=== PATIENT | female | born 1990 | race American Indian/Alaskan Native ===

== ENCOUNTER 2021-08-07 14:54 | Emergency (ER) | payer BC ==
[2021-08-07 16:40] VITALS: BP 139/79
[2021-08-07 17:58] LABS: Basophils % (Auto) 0.2 % (0.0-1.8); Eosinophils # (Auto) 0.2 K/mm3 (0.0-0.4); Eosinophils % (Auto) 1.8 % (0.0-4.3); Hematocrit 38.2 % (30.3-42.9); Hemoglobin 13.1 gm/dl (10.1-14.3); Lymphocytes # (Auto) 1.3 K/mm3 (1.2-5.4); Lymphocytes % (Auto) 9.9 % (13.4-35.0); Mean Corpuscular HGB Conc 34 % (30-34); Mean Corpuscular Volume 97 fl (79-97); Monocytes # (Auto) 0.7 K/mm3 (0.0-0.8); Monocytes % (Auto) 5.7 % (0.0-7.3); Platelet Count 248 K/mm3 (140-440); Red Blood Count 3.93 M/mm3 (3.65-5.03); Red Cell Distribution Width 12.4 % (13.2-15.2)
[2021-08-07 18:08] LABS: Blood Urea Nitrogen 5 mg/dL (7-17); Calcium 9.5 mg/dL (8.4-10.2); Hemolysis Index 17
[2021-08-07 18:14] LABS: BUN/Creatinine Ratio 10
[2021-08-07] MEDS ORDERED: ONDANSETRON 4 MG ODT TAB PO ONE (20:49)
--- NOTE | 2021-08-07 21:34 | Emergency Department Report ---
ED Abdominal Pain HPI - General Chief Complaint: Abdominal Pain Stated Complaint: VOMITING/[id number] Time Seen by Provider: 08/07/21 20:41 Source: patient Mode of arrival: Ambulatory Limitations: No Limitations - History of Present Illness Initial Comments: Is a 30-year-old female who presents for left upper quadrant abdominal pain with nausea/ vomiting and occasional constipation for the past month. Patient states miscarriage in june of 2021, LMP 1 week ago. However patient did follow-up with [facility] for reevaluation's stated findings with no suggestion for retained products of conception. pt further endorses hx of Right fallopian tube and right ovary removal 1 year ago. There is been no fevers no chills. Patient denies history of GERD or Crohn's. Symptoms are exacerbated by p.o. intake. Symptoms are relieved by nothing tried. Last nausea and vomiting was this a.m., last p.o. intake was this AM. Patient rates pain at 3/10 states pain level is manageable for her. Patient denies other symptoms denies other history. Patient currently not taking medications. Denies smoking denies substance. She does endorse eating sushi regularly. However no history of H. pylori. MD Complaint: abdominal pain Severity scale (0 -10): 0 - Related Data Previous Rx's Medication Instructions Recorded Last Taken Type Metoclopramide [Reglan] 10 mg PO Q6H PRN #30 tablet 08/07/21 Unknown Rx diphenhydrAMINE [Benadryl CAP] 25 mg PO Q8HR PRN #30 capsule 08/07/21 Unknown Rx Allergies Allergy/AdvReac Type Severity Reaction Status Date / Time No Known Allergies Allergy Verified 08/07/21 16:41 ED Review of Systems ROS: Stated complaint: VOMITING/[id number] Other details as noted in HPI Constitutional: denies: chills, fever Eyes: denies: eye pain, eye discharge, vision change ENT: denies: ear pain, throat pain Respiratory: denies: cough, shortness of breath, wheezing Cardiovascular: denies: chest pain, palpitations Endocrine: no symptoms reported Gastrointestinal: abdominal pain, nausea, vomiting, constipation. denies: diarrhea, melena, hematochezia Genitourinary: denies: urgency, dysuria, discharge Musculoskeletal: denies: back pain, joint swelling, arthralgia Skin: denies: rash, lesions Neurological: denies: headache, weakness, paresthesias Psychiatric: denies: anxiety, depression Hematological/Lymphatic: denies: easy bleeding, easy bruising ED Past Medical Hx - Medications Home Medications: Home Medications Medication Instructions Recorded Confirmed Last Taken Type Metoclopramide [Reglan] 10 mg PO Q6H PRN #30 tablet 08/07/21 Unknown Rx diphenhydrAMINE [Benadryl CAP] 25 mg PO Q8HR PRN #30 capsule 08/07/21 Unknown Rx ED Physical Exam - General Limitations: No Limitations General appearance: alert, in no apparent distress - Head Head exam: Present: normocephalic, normal inspection - Eye Eye exam: Present: EOMI Pupils: Present: normal accommodation - ENT ENT exam: Present: mucous membranes moist - Neck Neck exam: Present: normal inspection, full ROM. Absent: tenderness, lymphadenopathy - Respiratory Respiratory exam: Present: normal lung sounds bilaterally. Absent: respiratory distress, wheezes, chest wall tenderness - Cardiovascular Cardiovascular Exam: Present: regular rate, normal rhythm, normal heart sounds. Absent: systolic murmur, diastolic murmur, rubs, gallop - GI/Abdominal GI/Abdominal exam: Present: soft, normal bowel sounds. Absent: distended, tenderness, guarding, rebound, rigid, bruit, hernia - Rectal Rectal exam: Present: deferred - External exam: Present: other (Deferred) - Extremities Exam Extremities exam: Present: normal inspection, full ROM, normal capillary refill. Absent: tenderness - Back Exam Back exam: Present: normal inspection, full ROM. Absent: CVA tenderness (R), CVA tenderness (L) - Neurological Exam Neurological exam: Present: alert, oriented X3, CN II-XII intact - Expanded Neurological Exam Expanded Patient oriented to: Present: person, place, time Speech: Present: fluid speech Best Eye Response (Crystal): (4) open spontaneously Best Motor Response (Crystal): (6) obeys commands Best Verbal Response ([place]): (5) oriented [place] Total: 15 - Psychiatric Psychiatric exam: Present: normal affect, normal mood - Skin Skin exam: Present: warm, dry, intact, normal color. Absent: rash ED Course Vital Signs 08/07/21 16:35 Temperature 97.9 F Pulse Rate 91 H Respiratory 20 Rate Blood Pressure 139/79 [Right] O2 Sat by Pulse 96 Oximetry ED Medical Decision Making - Lab Data Result diagrams: 08/07/21 17:33 08/07/21 17:33 - Radiology Data Radiology results: report reviewed, image reviewed Single IUP , 14 weeks, 6 days, FHR: 155 bpm, HC, Left Ovarian cyst US transvaginal, US OB <= 14 weeks fetus INDICATION / CLINICAL INFORMATION: abd pain pos preg unknown quantitative beta- hCG. History of prior resection of right ovary/fallopian tube. COMPARISON: None available. TECHNIQUE: Using a transcutaneous and endovaginal probe, multiple grayscale, color Doppler, and spectral Doppler images of the uterus and fetus were captured and stored. FINDINGS: Single intrauterine gestation is demonstrated with heart rate of 155 bpm. pole is present with body motion/limb motion noted during image acquisition. Anterior placenta demonstrated. No ultrasound abnormality of the placenta demonstrated. Measurements were obtained for dating as follows: Mean crown-rump length 96.4 mm; 15 weeks 3 days. BPD 27.1 cm; 14 weeks 6 days. Femur length 16.2 cm; 14 weeks 5 days. Ultrasound composite estimated gestational age is 14 weeks 6 days, EDC 01/30/2022. Clinical data less than gestational age based on LMP of 07/28/2021 is 1 week 3 days. The uterus measures 18.0 x 9.4 x 12.7 cm. Uterine cervix is closed measuring 5.4 cm. At the internal os of the uterine cervix a few prominent vessels are present, no previa. Small amount of debris present at the internal os. Right ovary not identified secondary to surgical absence. Left ovary measures 4.9 x 2.9 x 3.7 cm and corpus luteal cyst is present. IMPRESSION: 1. Single living intrauterine gestation with estimated gestational age of 14 weeks 6 days, EDC 01/30/2022. Signer Name: Kadi Tipton II, MD Signed: 08/08/2021 12:10 AM Workstation Name: [id number] Transcribed By: WALTER Dictated By: KADI TIPTON II, MD Electronically Authenticated By: KADI TIPTON II, MD Signed Date/Time: 08/08/21 0010 DD/ 0004 TD/TT: - Medical Decision Making Single IUP , 14 weeks, 6 days, FHR: 155 bpm, Left Ovarian cyst , labs noted as above Plan DC with prescriptions, follow-up with [facility] call tomorrow to confirm earlier appointment. Return to emergency department should symptoms worsen. Critical care attestation.: If time is entered above; I have spent that time in minutes in the direct care of this critically ill patient, excluding procedure time. ED Disposition Clinical Impression: Nausea and vomiting during prior to 22 weeks gestation Qualifiers: Weeks of gestation: 15 weeks Qualified Code(s): Z3A.15 - 15 weeks gestation of Disposition: HOME / SELF CARE / HOMELESS Is pt being admited?: No Does the pt Need Aspirin: No Condition: Stable Instructions: Nausea and Vomiting, Adult, [id number], Ovarian Cyst, Second Trimester of , Abdominal Pain (ED) Additional Instructions: 14 weeks and 6 days, Take medications as prescribed, hydrate as directed follow-up with your [facility]IR[facility] OFF[facility]GER tomorrow. Return to emergency department should symptoms worsen. Prescriptions: diphenhydrAMINE [Benadryl CAP] 25 mg PO Q8HR PRN #30 capsule PRN Reason: nausea and vomiting Metoclopramide [Reglan] 10 mg PO Q6H PRN #30 tablet PRN Reason: Nausea And Vomiting Referrals: JULIANA WOODS MD [Staff Physician] - 3-5 Days Forms: Work/School Release Form(ED) Time of Disposition: 00:39
[2021-08-07] MEDS ORDERED: SODIUM CHLORIDE 0.9% 1000 ML 1,000 ML IV ONE (21:37)
[2021-08-07 22:13] LABS: Bacteria,Urine 1+ /HPF (Negative); Mucus,Urine 1+ /HPF
[2021-08-07 22:17] LABS: HCG Qualitative,Urine Positive (Negative)
[2021-08-07 22:18] LABS: Bilirubin,Urine Negative (Negative); Blood,Urine Negative (Negative); Color,Urine Yellow (Yellow); Urobilinogen,Urine < 2.0 mg/dL (<2.0)
--- NOTE | 2021-08-08 00:14 | Ultrasound Report ---
US transvaginal, US OB <= 14 weeks fetus INDICATION / CLINICAL INFORMATION: abd pain pos preg unknown quantitative beta-hCG. History of prior resection of right ovary/fallopian tube. COMPARISON: None available. TECHNIQUE: Using a transcutaneous and endovaginal probe, multiple grayscale, color Doppler, and spect ral Doppler images of the uterus and fetus were captured and stored. FINDINGS: Single intrauterine gestation is demonstrated with heart rate of 155 bpm. pole is present with body motion/limb motion noted during image acquisition. Anterior placenta demonstrated. No ultrasound abnormality of the placenta demonstrated. Measurements were obtained for dating as follows: Mean crown-rump length 96.4 mm; 15 weeks 3 days. BPD 27.1 cm; 14 weeks 6 days. Femur length 16.2 cm; 14 weeks 5 days. Ultrasound composite estimated gestational age is 14 weeks 6 days, EDC 01/30/2022. Clinical data less than gestational age based on LMP of 07/28/2021 is 1 week 3 days. The uterus measures 18.0 x 9.4 x 12.7 cm. Uterine cervix is closed measuring 5.4 cm. At the internal os of the uterine cervix a few prominent vessels are present, no previa. Small amount of debris prese nt at the internal os. Right ovary not identified secondary to surgical absence. Left ovary measures 4.9 x 2.9 x 3.7 cm and corpus luteal cyst is present. IMPRESSION: 1. Single living intrauterine gestation with estimated gestational age of 14 weeks 6 days, EDC 2021. Signer Name: Haider Tipton II, MD Signed: 08/08/2021 12:10 AM Workstation Name: [id number]
== END 2021-08-08 01:02 | disposition home or self-care (01) ==
LOC: ED 14:54
DX: O21.8 Other vomiting complicating pregnancy (principal); Z3A.15 15 weeks gestation of pregnancy
CPT/HCPCS: 36415; 76816; 76817; 80048; 81001; 81025; 82150; 83690; 84702; 85025; 96360; 99284; J7030; J3490; Q0162